=== PATIENT | female | born 2000 | race African-American/Black ===

== ENCOUNTER 2022-05-06 23:32 | Inpatient (IN) ==
[2022-05-06] MEDS ORDERED: CARBOPROST TROMETHAMINE 250 MCG/ML AMP IM PRN (23:45)
[2022-05-06] MEDS ORDERED: ONDANSETRON 4 MG/2 ML VIAL IV PRN (23:45)
[2022-05-06] MEDS ORDERED: METHYLERGONOVINE 0.2 MG/1 ML AMP IM PRN (23:45)
[2022-05-06] MEDS ORDERED: OXYTOCIN/LR 20 UNIT/1,000 ML BAG IV ONE (23:45)
[2022-05-06] MEDS ORDERED: miSOPROStoL 200 MCG TABLET RECTAL PRN (23:45)
[2022-05-06] MEDS ORDERED: LACTATED RINGERS 250 ML IV ONE (23:45)
[2022-05-06] MEDS ORDERED: ACETAMINOPHEN 325 MG TABLET PO PRN (23:45)
[2022-05-06] MEDS ORDERED: LACTATED RINGERS 500 ML IV PRN (23:45)
[2022-05-06] MEDS ORDERED: TRANEXAMIC ACID 1,000 MG in SODIUM CHLORIDE 0.9% 100 ML IV PRN (23:45)
[2022-05-06] MEDS ORDERED: BUTORPHANOL 1 MG/ML VIAL IV PRN (23:45)
[2022-05-06] MEDS ORDERED: BUTORPHANOL 2 MG/ML VIAL IV PRN (23:45)
[2022-05-07 00:45] LABS: Basophils % 0.1 % (0.0-0.8); Eosinophils # 0.1 10*3/uL (0.0-0.87); Eosinophils % 1.3 % (0.00-10.9); Immature Granulocytes % 0.7 %; Immature Granulocytes Absolute 0.06 #; Lymphocytes # 1.5 10*3/uL (1.4-4.0); Mean Corpuscular Volume 81.7 FL (87-102); Mean Platelet Volume 10.3 FL (9.6-12.0); Monocytes # 0.9 10*3/uL (0.11-0.8); Monocytes % 10.6 % (1.7-12.7); Neutrophils % 70.3 % (38.7-73.9); Platelet Count 284 T/CUMM (130-400); Red Blood Count 3.55 MC/CUMM (3.8-5.5); White Blood Count 8.7 T/CUMM (4-12)
[2022-05-07] MEDS: LACTATED RINGERS 1,000 ML IV SCH ×3 (00:49→10:32)
[2022-05-07] MEDS ORDERED: OXYTOCIN/LR 20 UNIT/1,000 ML BAG IV SCH (01:00)
[2022-05-07 01:02] LABS: Albumin 2.9 G/DL (3.4-5.0); Bilirubin,Total 0.4 MG/DL (0.20-1.00); Osmolality,Calculated 269.8 MOS/KG (273-304); Potassium 3.7 MMOL/L (3.5-5.1); Total Protein 7.5 G/DL (6.4-8.2)
[2022-05-07 04:53] LABS: Rubella Antibody IgG Result Reactive (NonReactive)
[2022-05-07] MEDS ORDERED: diphenhydrAMINE 50 MG/1 ML VIAL IV PRN ×2 (06:24)
[2022-05-07] MEDS ORDERED: ePHEDrine 50 MG/ML VIAL IV PRN (06:24)
[2022-05-07] MEDS ORDERED: PROMETHAZINE 25 MG/1 ML VIAL IM ONE (06:24)
[2022-05-07] MEDS ORDERED: NALOXONE 0.4 MG/ML VIAL IV PRN (06:24)
[2022-05-07] MEDS ORDERED: hydrOXYzine HCL 25 MG/1 ML VIAL IM PRN (06:24)
[2022-05-07] MEDS ORDERED: ONDANSETRON 4 MG/2 ML VIAL IV ONE (06:24)
[2022-05-07] MEDS ORDERED: LACTATED RINGERS 250 ML IV PRN (06:24)
[2022-05-07] MEDS ORDERED: CITRIC ACID/SODIUM CITRATE 30 ML UDCUP PO ONE (06:25)
[2022-05-07] MEDS ORDERED: LACTATED RINGERS 1,000 ML IV SCH (06:30)
[2022-05-07] MEDS ORDERED: FAMOTIDINE 20 MG/2 ML VIAL IV ONE ×2 (06:33→06:38)
[2022-05-07] MEDS: fentaNYL 2 MCG/ROPIV 0.2% EPID 100 ML EPIDURAL SCH ×2 (07:20→12:46)
[2022-05-07 09:27] LABS: Mucus,Urine Occasional /LPF (Occasional); RBC,Urine 1 /HPF (0-4)
[2022-05-07 09:29] LABS: Bilirubin,Urine Negative (Negative); Blood, Urine Trace mg/dL (Negative); Glucose,Urine (UA) Negative (Negative); Ketones,Urine 15 mg/dL (Negative); Nitrite,Urine Negative (Negative); Protein,Urine Negative (Negative); Urine Appearance Clear (Clear); Urine Color Yellow (Yellow); Urine Specific Gravity 1.015 (1.001-1.035)
[2022-05-07] MEDS ORDERED: OXYTOCIN/LR 20 UNIT/1,000 ML BAG IV ONE ×2 (11:56→20:03)
[2022-05-07] MEDS ORDERED: SODIUM CHLORIDE 0.9% 0 ML IV ONE (11:56)
[2022-05-07] MEDS ORDERED: miSOPROStoL 200 MCG TABLET ONE (11:56)
[2022-05-07] MEDS ORDERED: TRANEXAMIC ACID 1,000 MG/10 ML VIAL ONE (11:56)
[2022-05-07] MEDS ORDERED: METHYLERGONOVINE 0.2 MG/1 ML AMP ONE (11:56)
[2022-05-07] MEDS ORDERED: BUTALBITAL/ACETAMIN/CAFFEINE 50-325-40 MG TABLET PO PRN (15:13)
[2022-05-07] MEDS ORDERED: BUTALBITAL/ACETAMIN/CAFFEINE 50-325-40 MG TABLET PO ONE (15:36)
[2022-05-07 15:48] LABS: Cord Venous Blood HCO3 21.1 MMOL/L; Cord Venous Blood PCO2 43.2 MMHG; Cord Venous Blood PO2 26.9
[2022-05-07] MEDS ORDERED: SUMAtriptan 6 MG/0.5 ML VIAL SUBCUT SCH (16:00)
[2022-05-07] MEDS ORDERED: LANOLIN 50% CREAM 0.3 OZ TUBE TOP PRN (20:03)
[2022-05-07] MEDS ORDERED: BISACODYL 10 MG SUPP RECTAL PRN (20:03)
[2022-05-07] MEDS ORDERED: RHO(D) IMMUNE GLOBULIN 300 MCG SYRINGE IM ONE (20:03)
[2022-05-07] MEDS ORDERED: MEASLES/MUMPS/RUBELLA VACCINE 0.5 ML VIAL SUBCUT ONE (20:03)
[2022-05-07] MEDS ORDERED: BENZOCAINE 20%/MENTHOL 0.5% SPRAY 56 GM CAN TOP PRN (20:03)
[2022-05-07] MEDS ORDERED: WITCH HAZEL PADS 100/JAR TOP PRN (20:03)
[2022-05-07] MEDS ORDERED: HYDROCORTISONE 2.5% RECTAL CREAM 30 GM TUBE TOP PRN (20:03)
[2022-05-07] MEDS ORDERED: oxyCODONE/ACETAMINOPHEN 5-325 MG TABLET PO PRN (20:03)
[2022-05-07] MEDS ORDERED: DIPH/TET/ACEL PERT BOOSTER VACCINE 0.5 ML VIAL IM ONE (20:03)
[2022-05-07] MEDS: oxyCODONE/ACETAMINOPHEN 5-325 MG TABLET PO PRN (20:18)
[2022-05-07] MEDS: DOCUSATE SODIUM 100 MG CAPSULE PO SCH (22:01)
[2022-05-07] MEDS: IBUPROFEN 800 MG TABLET PO PRN (22:52)
[2022-05-07] MEDS ORDERED: BUTALBITAL/ACETAMIN/CAFFEINE 50-325-40 MG TABLET PO SCH (23:30)
[2022-05-08] MEDS: BUTALBITAL/ACETAMIN/CAFFEINE 50-325-40 MG TABLET PO SCH ×3 (01:30→17:04)
[2022-05-08] MEDS: SUMAtriptan 6 MG/0.5 ML VIAL SUBCUT SCH ×2 (03:26→15:58)
[2022-05-08] MEDS: oxyCODONE/ACETAMINOPHEN 5-325 MG TABLET PO PRN ×2 (04:12→23:35)
[2022-05-08 05:00] LABS: Basophils % 0.1 % (0.0-0.8); Eosinophils % 0.3 % (0.00-10.9); Hemoglobin 7.4 GM/DL (12.0-16.0); Immature Granulocytes % 0.7 %; Immature Granulocytes Absolute 0.11 #; Lymphocytes # 1.5 10*3/uL (1.4-4.0); Lymphocytes % 9.7 % (21.3-54.2); Mean Corpuscular HGB Conc 30.8 GM/DL (32-36); Mean Corpuscular Volume 81.4 FL (87-102); Mean Platelet Volume 10.7 FL (9.6-12.0); Monocytes # 1.5 10*3/uL (0.11-0.8); Monocytes % 9.8 % (1.7-12.7); Neutrophils % 79.4 % (38.7-73.9); Platelet Count 248 T/CUMM (130-400); Red Blood Count 2.95 MC/CUMM (3.8-5.5); Red Cell Distribution Width 13.9 % (9.3-17.3); White Blood Count 15.1 T/CUMM (4-12)
[2022-05-08] MEDS: FERROUS SULFATE 325 MG TABLET PO SCH ×3 (08:29→20:51)
[2022-05-08] MEDS: DOCUSATE SODIUM 100 MG CAPSULE PO SCH ×2 (08:30→20:51)
[2022-05-08] MEDS: MULTIVITAMIN (PRENATAL) TABLET PO SCH (08:30)
[2022-05-08] MEDS: IBUPROFEN 800 MG TABLET PO PRN (08:33)
[2022-05-08] MEDS ORDERED: ATROPINE 0.4 MG/1 ML VIAL ONE ×3 (18:23→19:17)
[2022-05-08] MEDS ORDERED: NEOSTIGMINE 10 MG/10 ML VIAL ONE (18:23)
[2022-05-08] MEDS ORDERED: KETOROLAC 30 MG/1 ML VIAL ONE (18:28)
[2022-05-09] MEDS: BUTALBITAL/ACETAMIN/CAFFEINE 50-325-40 MG TABLET PO SCH ×2 (01:20→08:58)
[2022-05-09] MEDS: SUMAtriptan 6 MG/0.5 ML VIAL SUBCUT SCH (04:10)
[2022-05-09] MEDS: oxyCODONE/ACETAMINOPHEN 5-325 MG TABLET PO PRN (06:21)
[2022-05-09] MEDS: DOCUSATE SODIUM 100 MG CAPSULE PO SCH (08:57)
[2022-05-09] MEDS: MULTIVITAMIN (PRENATAL) TABLET PO SCH (08:57)
[2022-05-09] MEDS: FERROUS SULFATE 325 MG TABLET PO SCH (08:57)
[2022-05-09 16:50] VITALS: BP 140/87
== END 2022-05-09 12:55 | disposition home or self-care (01) | DRG 560 ==
LOC: N.LD 23:32 → N.OB 05-07 22:20
PROVIDERS: ADMIT Obstetrics & Gynecology; ATTEND Obstetrics & Gynecology